=== PATIENT | female | born 2000 ===

== ENCOUNTER 2021-04-05 23:35 | Emergency (ER) | payer SELFPAY ==
[~2021-04-05] VITALS: Ht 152.4 cm; Wt 50.0 kg
[2021-04-06 00:35] VITALS: BP 98/52
--- NOTE | 2021-04-06 01:22 | NUR ---
no change in mentation. pt sleeping, resp even and unlabored.
--- NOTE | 2021-04-06 02:20 | NUR ---
PT SLEEPING WITH RESP AND UNLABORED.
--- NOTE | 2021-04-06 03:09 | NUR ---
PT AWAKE AND ALERT X4. CLEAR SPEECH AND HAS STEADY INDEPENDENT GAIT. PT REPORTS SHE CAN CALL SOMEONE FOR RIDE HOME.
--- NOTE | 2021-04-06 03:10 | NUR ---
REPORT TO JUN JOHNSON
--- NOTE | 2021-04-06 03:15 | NUR ---
PT AMBULATORY WITH STEADY GAIT FROM ROOM TO BATHROOM. PT STATES SHE IS READY TO GO HOME. "I CAN GET HOME, I'M FINE." ERP AWARE. AWAITING D/C.
--- NOTE | 2021-04-06 03:24 | NUR ---
BEDSIDE REPORT RECEIVED FROM TRUDI JOHNSON
--- NOTE | 2021-04-06 03:30 | NUR ---
PT LEFT ED PRIOR TO RECEIVING D/C INSTRUCTIONS. ERP AWARE. AMBULATORY WITH STEADY GAIT, [id number].
== END 2021-04-06 03:33 | disposition home or self-care (01) ==
LOC: EDBD 23:35 → ED 23:50
DX: F10.120 Alcohol abuse with intoxication, uncomplicated (principal); Y90.9 Presence of alcohol in blood, level not specified
CPT/HCPCS: 82962; 99283